=== PATIENT | female | born 1965 | race Caucasian/White ===

== ENCOUNTER 2019-05-06 07:30 | Emergency (ER) | payer MEDICAID ==
[~2019-05-06] VITALS: Ht 160 cm; Wt 73.0 kg
[2019-05-06] MEDS ORDERED: OXYCODONE HCL/ACETAMINOPHEN 5/325MG TABLET PO ONE ×2 (08:00→17:30)
[2019-05-07] MEDS ORDERED: ACETAMINOPHEN 325MG TABLET PO ONE (06:15)
[2019-05-07] MEDS ORDERED: IBUPROFEN 800MG TABLET PO ONE (11:15)
[2019-05-07] MEDS ORDERED: ACETAMINOPHEN 650MG/20.3ML UDC PO ONE (13:00)
[2019-05-07 18:10] VITALS: BP 125/78
== END 2019-05-07 18:28 | disposition home or self-care (01) ==
LOC: ER 07:30
DX: M79.662 Pain in left lower leg (principal); M79.661 Pain in right lower leg; W18.39XA Other fall on same level, initial encounter; Y93.89 Activity, other specified; Y92.89 Other specified places as the place of occurrence of the external cause; Y99.8 Other external cause status; I50.9 Heart failure, unspecified; Z88.1 Allergy status to other antibiotic agents
CPT/HCPCS: 72170; 72220; 73590; 99284